=== PATIENT | female | born 1965 | race Caucasian/White ===

== ENCOUNTER 2017-07-21 07:31 | Inpatient (IN) | payer BC ==
[~2017-07-21 07:31] MED LIST: EPHEDrine SULFATE 50 MG/5 ML SYG; LIDOCAINE 2% (SDV) 5 ML INJ
[2017-07-21] MEDS: SOD CHLORIDE 0.9% 100 ML, TRANEXAMIC ACID 3,000 MG IRR (08:00)
[2017-07-21] MEDS: CEFAZOLIN 2 GM/50 ML (PMX) 50 ML IVPB (08:00)
[2017-07-21] MEDS: TRANEXAMIC ACID 1,000 MG in DEXTROSE 5% 100 ML IVPB (08:00)
[2017-07-21] MEDS: traMADol 50 MG TAB PO (10:44)
[2017-07-21] MEDS: GABAPENTIN 300 MG CAP PO ×2 (10:44→20:05)
[2017-07-21] MEDS: DEXAMETHASONE 1 MG TAB PO (10:45)
[2017-07-21] MEDS ORDERED: CA CHLORIDE 10% 10 ML SYRINGE (12:05)
[2017-07-21] MEDS ORDERED: THROMBIN 5000 UNIT VIAL (12:05)
[2017-07-21] MEDS ORDERED: morphine SULFATE/PF (10 MG/10 ML) INJ (12:31)
[2017-07-21] MEDS ORDERED: PROPOFOL 20 ML (12:31)
[2017-07-21] MEDS ORDERED: ONDANSETRON 4 MG INJ (12:31)
[2017-07-21] MEDS ORDERED: ROCURONIUM 50 MG INJ (12:31)
[2017-07-21] MEDS ORDERED: DEXAMETHASONE 4 MG/ML 1 ML INJ (12:31)
[2017-07-21] MEDS ORDERED: GLYCOPYRROLATE 0.4 MG INJ (12:31)
[2017-07-21] MEDS ORDERED: FENTAnyl 50 MCG/ML VIAL (12:31)
[2017-07-21] MEDS ORDERED: MIDAZOLAM 1 MG/ML 2 ML INJ (12:31)
[2017-07-21] MEDS ORDERED: CEFAZOLIN 1 GM INJ (12:31)
[2017-07-21] MEDS ORDERED: NEOSTIGMINE 3 MG/3 ML SYRINGE (12:31)
[2017-07-21] MEDS: POLYMYXIN/BACITRACIN 1L IRRIG (13:50)
[2017-07-21] MEDS: BUPIVACAINE 0.5% (SDV) 30 ML, morphine SULFATE (PF) 8 MG, EPINEPHrine 0.3 MG, KETOROLAC... IRR (13:50)
[2017-07-21] MEDS: LACTATED RINGER'S 1,000 ML IV ×2 (14:49→22:40)
[2017-07-21] MEDS ORDERED: SUGAMMADEX SODIUM 200 MG/2 ML VIAL IV (14:54)
[2017-07-21] MEDS ORDERED: NALOXONE (0.4 MG/ML) INJ IV (15:00)
[2017-07-21] MEDS ORDERED: MEPERIDINE 25 MG INJ IV (15:00)
[2017-07-21] MEDS ORDERED: IPRATROPIUM (NEB) 0.5 MG/2.5 ML AMP HHN (15:00)
[2017-07-21] MEDS ORDERED: ONDANSETRON 4 MG INJ IV ×3 (15:00)
[2017-07-21] MEDS ORDERED: DIPHENHYDRAMINE 50 MG INJ IV ×3 (15:00)
[2017-07-21] MEDS ORDERED: TRIMETHOBENZAMIDE 100 MG/ML VIAL IM ×2 (15:00)
[2017-07-21] MEDS ORDERED: MAGNESIUM HYDROXIDE 30ML CUP PO (15:00)
[2017-07-21] MEDS ORDERED: NALBUPHINE HCL (10 MG/1 ML) INJ IV (15:00)
[2017-07-21] MEDS ORDERED: OXYCODONE/ACETAMINOPHEN (5/325) TAB PO ×3 (15:00)
[2017-07-21] MEDS ORDERED: hydrALAzine 20 MG INJ IV (15:00)
[2017-07-21] MEDS ORDERED: EPHEDrine SULFATE 50 MG/5 ML SYG IV (15:00)
[2017-07-21] MEDS ORDERED: ZOLPIDEM 5 MG TAB PO (15:00)
[2017-07-21] MEDS ORDERED: ALBUTEROL 0.083% (NEB) 2.5 MG/3 ML AMP HHN (15:00)
[2017-07-21] MEDS ORDERED: ACETAMINOPHEN 500 MG TAB PO (15:00)
[2017-07-21] MEDS ORDERED: MIDAZOLAM 1 MG/ML 2 ML INJ IV (15:00)
[2017-07-21] MEDS ORDERED: morphine 2 MG INJ IV (15:00)
[2017-07-21] MEDS ORDERED: KETOROLAC 15 MG INJ IV (15:00)
[2017-07-21] MEDS ORDERED: FENTAnyl 50 MCG/ML VIAL IV ×3 (15:00)
[2017-07-21] MEDS ORDERED: LABETALOL HCL 20MG INJ IV (15:00)
[2017-07-21] MEDS ORDERED: KETOROLAC 30 MG INJ IV (15:00)
[2017-07-21] MEDS ORDERED: HYDROmorphONE (0.2 MG/ML) 10ML SYG IV ×3 (15:00)
[2017-07-21] MEDS ORDERED: HYDROmorphONE 0.5 MG/0.5 ML SYG IV (15:00)
[2017-07-21] MEDS ORDERED: CEFAZOLIN 1 GM/50 ML (PMX) 50 ML IVPB (15:28)
[2017-07-21] MEDS: TRANEXAMIC ACID 1,000 MG in DEXTROSE 5% 100 ML IV (15:44)
[2017-07-21] MEDS: CEFAZOLIN 1 GM/50 ML (PMX) 50 ML IVPB ×2 (15:44→22:40)
[2017-07-21 16:30] LABS: ADD MAN DIFF? NO
[2017-07-21 16:36] LABS: WHITE BLOOD COUNT 5.8 10^3/ul (4.8-10.8)
[2017-07-21 16:36] LABS: BASOPHILS % 0.2 % (0.0-2.0); HEMATOCRIT 31.9 % (37.0-47.0); HEMOGLOBIN 10.8 g/dl (12.0-16.0); LYMPHOCYTES # 0.8 10^3/ul (0.8-2.9); LYMPHOCYTES % 13.1 % (15.0-51.0); MEAN CORPUSCULAR HEMOGLOBIN 32.4 pg (29.0-33.0); MEAN CORPUSCULAR HGB CONC 33.9 g/dl (32.0-37.0); MEAN CORPUSCULAR VOLUME 95.8 fl (82.0-101.0); MONOCYTE # 0.2 10^3/ul (0.3-0.9); MONOCYTES % 2.9 % (0.0-11.0); NEUTROPHIL # 4.8 10^3/ul (1.6-7.5); NEUTROPHILS % 82.9 % (39.0-77.0); PLATELET COUNT 195 10^3/UL (140-415); RED BLOOD COUNT 3.33 10^6/ul (4.20-5.40); RED CELL DISTRIBUTION WIDTH 13.2 % (11.5-14.5)
[2017-07-21] MEDS: DEXAMETHASONE 2 MG TAB PO ×2 (18:23→23:33)
[2017-07-21] MEDS: BACLOFEN 10 MG TAB PO (20:05)
[2017-07-21] MEDS: SENNA/DOCUSATE NA (8.6MG/50MG) TAB PO (20:05)
[2017-07-21] MEDS: HYDROmorphONE 0.5 MG/0.5 ML SYG IV (22:41)
[2017-07-21] MEDS: ZOLPIDEM 5 MG TAB PO (23:34)
[2017-07-22] MEDS: HYDROmorphONE 0.5 MG/0.5 ML SYG IV ×4 (03:57→10:32)
[2017-07-22 05:58] LABS: ADD MAN DIFF? NO
[2017-07-22 06:03] LABS: WHITE BLOOD COUNT 13.2 10^3/ul (4.8-10.8)
[2017-07-22 06:03] LABS: BASOPHILS % 0.1 % (0.0-2.0); EOSINOPHILS % 0.1 % (0.0-7.0); HEMOGLOBIN 10.7 g/dl (12.0-16.0); LYMPHOCYTES # 0.8 10^3/ul (0.8-2.9); LYMPHOCYTES % 6.3 % (15.0-51.0); MEAN CORPUSCULAR HEMOGLOBIN 32.8 pg (29.0-33.0); MEAN CORPUSCULAR HGB CONC 34.5 g/dl (32.0-37.0); MEAN CORPUSCULAR VOLUME 95.1 fl (82.0-101.0); MEAN PLATELET VOLUME 11.3 fl (7.4-10.4); MONOCYTE # 0.9 10^3/ul (0.3-0.9); MONOCYTES % 6.9 % (0.0-11.0); NEUTROPHIL # 11.4 10^3/ul (1.6-7.5); NEUTROPHILS % 86.1 % (39.0-77.0); PLATELET COUNT 199 10^3/UL (140-415); RED BLOOD COUNT 3.26 10^6/ul (4.20-5.40); RED CELL DISTRIBUTION WIDTH 13.2 % (11.5-14.5)
[2017-07-22] MEDS: CEFAZOLIN 1 GM/50 ML (PMX) 50 ML IVPB (06:26)
[2017-07-22] MEDS: DEXAMETHASONE 2 MG TAB PO ×2 (06:26→12:23)
[2017-07-22] MEDS: ASPIRIN 81 MG TAB PO (08:23)
[2017-07-22] MEDS: BACLOFEN 10 MG TAB PO (08:23)
[2017-07-22] MEDS: SENNA/DOCUSATE NA (8.6MG/50MG) TAB PO (08:23)
[2017-07-22 09:17] LABS: ADD UMIC NO; UR ASCORBIC ACID NEGATIVE (NEGATIVE); UR BILIRUBIN (Dip) NEGATIVE (NEGATIVE); UR BLOOD (Dip) NEGATIVE (NEGATIVE); UR CLARITY CLEAR (CLEAR); UR COLOR COLORLESS (YELLOW); UR GLUCOSE (Dip) NEGATIVE (NEGATIVE); UR KETONES (Dip) NEGATIVE (NEGATIVE); UR LEUKOCYTE ESTERASE (Dip) NEGATIVE Leu/ul (NEGATIVE); UR NITRITE (Dip) NEGATIVE (NEGATIVE); UR SPECIFIC GRAVITY (Dip) 1.003 (1.003-1.030); UR TOTAL PROTEIN (Dip) NEGATIVE (NEGATIVE); UR UROBILINOGEN (Dip) NEGATIVE (NEGATIVE)
[2017-07-22] MEDS: LACTATED RINGER'S 1,000 ML IV (10:49)
[2017-07-22] MEDS: morphine 4 MG/ML VIAL IV (12:20)
[2017-07-22] MEDS: OXYCODONE/ACETAMINOPHEN (5/325) TAB PO (14:22)
== END 2017-07-22 14:44 | disposition home or self-care (01) | DRG 470 ==
LOC: REC 07:31 → MS1 12:59 → REC 13:14 → MS1 17:45
PROVIDERS: Orthopaedic Surgery
PROC: 0SRB04A Replacement of Left Hip Joint with Ceramic on Polyethylene Synthetic Substitute, Uncemented, Open Approach (ICD-10-PCS; principal; 2017-07-21 13:15)
DX: M16.12 Unilateral primary osteoarthritis, left hip (principal)
CPT/HCPCS: 72170; 73530; 81003; 84703; 85025; 87086; 97116